=== PATIENT | female | born 1985 | race African-American/Black ===

== ENCOUNTER 2017-09-12 10:36 | Emergency (ER) | payer MEDICAID ==
[~2017-09-12] VITALS: Ht 165.1 cm; Wt 137.0 kg
[2017-09-12] MEDS ORDERED: CYCLOBENZAPRINE 10MG TABLET PO ONE (15:30)
[2017-09-12] MEDS ORDERED: KETOROLAC 60MG/2ML VIAL IM ONE (15:30)
[2017-09-12 16:47] VITALS: BP 197/98
== END 2017-09-12 16:50 | disposition home or self-care (01) ==
LOC: ER 13:39
DX: M54.5 Low back pain (principal); M54.30 Sciatica, unspecified side; Z90.49 Acquired absence of other specified parts of digestive tract
CPT/HCPCS: 81025; 96372; 99283; J1885